=== PATIENT | male | born 1965 | race Caucasian/White ===

== ENCOUNTER → 2016-11-26 | Outpatient (CLI) | payer OTHER ==
[2016-11-26 10:07] LABS: Appearance,Urine Clear (Clear); Bilirubin,Urine Negative (Negative); Glucose,Urine (UA) Negative (Negative); Ketones,Urine Negative (Negative); Leukocyte Esterase,Urine Trace (Negative); Mucus,Urine Rare /hpf; Nitrite,Urine Negative (Negative); Particle Count 1520; Protein,Urine Negative (Negative); RBC,Urine 4 /hpf (0-5); Specific Gravity,Urine 1.013 (1.001-1.035); Squamous Epithelial Cell,Urine <1 /hpf (0-4); UA Billing (MACRO vs. MICRO) MICRO; Urobilinogen,Urine <2.0 mg/dL (<2.0); WBC,Urine 5 /hpf (0-5)
[2016-11-26 10:11] LABS: Basophils % (A) 1 %; CH 30.2; CHCM 33.9; Eosinophils # (A) 0.1 k/uL (0-0.7); Eosinophils % (A) 1 %; HCT 49.9 % (39.0-53.0); HDW 2.36; HGB 16.3 gm/dL (13.0-17.5); Luc # (Auto) 0.18; Luc % (Auto) 2; Lymphocytes # (A) 2.3 k/uL (1.0-4.8); Lymphocytes % (A) 30 %; MCH 29.3 pg (25.0-35.0); MCHC 32.7 g/dL (31.0-37.0); MCV 89.6 fL (80.0-100.0); Mean Platelet Volume 6.6; Monocytes # (A) 0.4 k/uL (0-1.0); Monocytes % (A) 5 %; Neutrophils # (A) 4.7 k/uL (1.3-7.7); Neutrophils % (A) 61 %; RBC 5.57 m/uL (4.30-5.90); WBC 7.7 k/uL (3.8-10.6); WBC (Perox) 7.74
[2016-11-26 10:19] LABS: Anion Gap 9 mmol/L; Blood Urea Nitrogen 16 mg/dL (9-20); Carbon Dioxide 27 mmol/L (22-30); Chloride 104 mmol/L (98-107); Non-African American GFR(MDRD) >60 (>60 ml/min/1.73 sqM); Sodium 140 mmol/L (137-145)
== END | disposition home or self-care (01) ==
LOC: LABWHC1 09:18
PROVIDERS: ATTEND Urology
DX: Z01.812 Encounter for preprocedural laboratory examination (principal); N20.1 Calculus of ureter
CPT/HCPCS: 36415; 80051; 81001; 82565; 84520; 85025

== ENCOUNTER 2016-12-02 11:09 | Day surgery (SDC) | payer OTHER ==
[2016-11-29 09:04] VITALS: BMI 36.1
[~2016-12-02 11:09] MED LIST: LIDOCAINE 1% 20 ML VIAL (10MG/ML) FOR IV START INTRADERMA PRN; Pre Op ABX Message 1 EACH MISC MISCELLANE ONE
[2016-12-02 11:25] VITALS: TEMP 97.6
[2016-12-02] MEDS: LACTATED RINGERS 1,000 ML IV ONE ×2 (11:33→11:54)
[2016-12-02] MEDS ORDERED: LIDOCAINE 1% 20 ML VIAL (10MG/ML) FOR IV START INTRADERMA ONE (11:33)
[2016-12-02] MEDS ORDERED: fentaNYL (PF) 50 MCG/ML 2 ML AMP ONE (11:54)
[2016-12-02] MEDS ORDERED: MIDAZOLAM 2 MG/2 ML VIAL ONE (11:54)
[2016-12-02] MEDS ORDERED: FUROSEMIDE 10 MG/ML 2 ML VIAL ONE (11:54)
[2016-12-02] MEDS ORDERED: PROPOFOL 10 MG/ML 20 ML VIAL IV ONE (11:54)
[2016-12-02] MEDS ORDERED: LIDOCAINE 1% INJ 10MG/ML (20 ML MDV) ONE (11:54)
--- NOTE | 2016-12-02 12:19 | XR ---
EXAMINATION TYPE: XR KUB DATE OF EXAM: 12/02/2016 11:03 AM COMPARISON: NONE INDICATION: Kidney stones TECHNIQUE: Single view abdomen FINDINGS: There is a normal bowel gas pattern. Psoas margins are normal. No organomegaly is present. No abnormal calcifications are identified. There may be some faint density in the superior pole left kidney measuring 2 mm not well visualized on the second image. Previous suspected left ureteral stone measuring 1.4 cm craniocaudal dimension may remain present. Some adjacent calcification may be prese nt. This is overlying the small bowel loop. This is at the level of the left L3 transverse process IMPRESSION: 1. Possible mid left ureteral stone measures slightly larger than the previous measurement at the lev el of the superior L4 vertebral level in October 2016.
--- NOTE | 2016-12-02 12:40 | P.OP ---
Date of Procedure: 12/02/16 Preoperative Diagnosis: Left Ureteral Calculus Postoperative Diagnosis: Same Procedure(s) Performed: Left Extracorporeal Shockwave Lithotripsy (ESWL) Anesthesia: MAC Surgeon: Ac Rosado Estimated Blood Loss (ml): 0 IV fluids (ml): 800 Pathology: none sent Condition: stable Disposition: PACU Indications for Procedure: The patient came acutely for evaluation of a 7x10 mm proximal left ureteral stone. He also has small bilateral renal stones. His urine is clear. He feels well now but has been taking prn norco. He now comes for ESWL. Operative Findings: No obvious fragmentation Description of Procedure: The patient was taken to the operating room and placed on the Dornier Compact Delta II lithotripter in the supine position. The calculus was seen on biplanar fluoroscopy. Lasix 10 mg was given intravenously. Once the patient was properly positioned and sedated, lithotripsy was performed. The energy level was gradually increased per protocol, to an energy level of 4. After 200 shocks were administered, a 2 minute pause was instituted per protocol. A total of 2500 shocks were given at a rate of 80 shocks per minute. Fluoroscopy was utilized at a minimum to ensure proper positioning and determine the treatment status. The appearance of the calculus failed to change, suggesting fragmentation had not occurred. The patient tolerated the procedure well was taken to the recovery room in stable condition. Instructions were given to strain the urine, and the patient will follow-up within one week.
[2016-12-02 13:43] VITALS: BP 154/93; PULSE 69; RESP 18
== END 2016-12-02 13:44 | disposition home or self-care (01) ==
LOC: ORWHC2ENDO 11:09
PROVIDERS: ATTEND Urology
DX: N20.2 Calculus of kidney with calculus of ureter (principal); Z79.891 Long term (current) use of opiate analgesic; Z79.899 Other long term (current) drug therapy
CPT/HCPCS: 74000; 50590; J2250; J1940; J2001; J3010; J2704; 99153

== ENCOUNTER → 2016-12-06 | Outpatient (CLI) | payer OTHER ==
--- NOTE | 2016-12-06 09:40 | XR ---
EXAMINATION TYPE: XR abdomen 1V DATE OF EXAM: 12/06/2016 9:34 AM HISTORY: Pain Comparison: 12/02/2016 Single KUB is submitted for interpretation. Findings: Right renal calculi: None Visualized. Right ureteral calculi: None Visualized. Left renal calculi: Multiple small left-sided renal calculi are seen measuring up to 3 mm. Left ureteral calculi: 6 mm calculus left mid ureter is essentially unchanged and overlies the L3 le ft transverse process. Pelvic calcifications: None Visualized. Bowel gas pattern is unremarkable. No free air. No mass effects. IMPRESSION: 1. No significant change appreciated.
== END | disposition home or self-care (01) ==
LOC: RADXRMAIN 09:19
PROVIDERS: ATTEND Urology
DX: N20.1 Calculus of ureter (principal)
CPT/HCPCS: 74000

== ENCOUNTER → 2016-12-31 | Outpatient (CLI) | payer OTHER ==
--- NOTE | 2016-12-31 14:47 | XR ---
EXAMINATION TYPE: XR KUB DATE OF EXAM: 12/31/2016 1:49 PM CLINICAL HISTORY: Lithotripsy 3 weeks ago progress study. TECHNIQUE: 2 supine KUB images of the abdomen are obtained. COMPARISON: Abdominal x-ray December 06, 2016. CT abdomen and pelvis November 04, 2016. FINDINGS: There is redemonstration of 2 small fragmented or irregular calculi lower pole level left k idney and single calculus upper pole level right kidney measuring 5 mm or smaller in size. There is s table 7 mm calculus in the proximal to mid left ureter at inferior L3 vertebral body level. No signif icant change in size or position is noted. Small right-sided renal calculi a CT are less well seen on plain films. There is overall nonobstructive bowel gas pattern. Visualized osseous structures are intact. IMPRESSION: The 7 mm calculus proximal to mid left ureter remains unchanged in size and position.
[2016-12-31 15:40] LABS: Appearance,Urine Clear (Clear); Bilirubin,Urine Negative (Negative); Glucose,Urine (UA) Negative (Negative); Ketones,Urine Negative (Negative); Leukocyte Esterase,Urine Negative (Negative); Nitrite,Urine Negative (Negative); PH, Urine 6.5 (5.0-8.0); Protein,Urine Negative (Negative); Specific Gravity,Urine 1.014 (1.001-1.035); UA Billing (MACRO vs. MICRO) CHEM; Urobilinogen,Urine <2.0 mg/dL (<2.0)
[2016-12-31 15:53] LABS: Basophils # (A) 0.1 k/uL (0-0.2); Basophils % (A) 1 %; CH 30.2; CHCM 34.3; Eosinophils # (A) 0.1 k/uL (0-0.7); Eosinophils % (A) 1 %; HCT 48.4 % (39.0-53.0); HGB 16.3 gm/dL (13.0-17.5); Luc # (Auto) 0.23; Luc % (Auto) 2; Lymphocytes # (A) 2.9 k/uL (1.0-4.8); Lymphocytes % (A) 27 %; MCH 29.8 pg (25.0-35.0); MCHC 33.7 g/dL (31.0-37.0); MCV 88.4 fL (80.0-100.0); Mean Platelet Volume 6.9; Monocytes # (A) 0.6 k/uL (0-1.0); Monocytes % (A) 6 %; Neutrophils # (A) 6.6 k/uL (1.3-7.7); Neutrophils % (A) 63 %; RBC 5.47 m/uL (4.30-5.90); RDW 12.6 % (11.5-15.5); WBC 10.5 k/uL (3.8-10.6); WBC (Perox) 10.69
[2016-12-31 16:02] LABS: Anion Gap 10 mmol/L; Blood Urea Nitrogen 16 mg/dL (9-20); Calcium 9.5 mg/dL (8.4-10.2); Carbon Dioxide 27 mmol/L (22-30); Chloride 103 mmol/L (98-107); Glucose 94 mg/dL (74-99); Non-African American GFR(MDRD) >60 (>60 ml/min/1.73 sqM); Potassium 5.2 mmol/L (3.5-5.1); Sodium 140 mmol/L (137-145)
== END | disposition home or self-care (01) ==
LOC: RADXRMAIN 13:19
PROVIDERS: ATTEND Urology
DX: Z01.818 Encounter for other preprocedural examination (principal); N20.0 Calculus of kidney; N20.1 Calculus of ureter; Z01.812 Encounter for preprocedural laboratory examination
CPT/HCPCS: 36415; 74000; 80048; 81003; 85025

== ENCOUNTER 2017-01-06 08:52 | Day surgery (SDC) | payer OTHER ==
[2017-01-02 11:41] VITALS: BMI 36.5
[~2017-01-06 08:52] MED LIST changes: +LACTATED RINGERS 1,000 ML IV SCH; -LIDOCAINE 1% 20 ML VIAL (10MG/ML) FOR IV START INTRADERMA PRN; -Pre Op ABX Message 1 EACH MISC MISCELLANE ONE
--- NOTE | 2017-01-06 09:03 | XR ---
EXAMINATION TYPE: XR KUB DATE OF EXAM: 01/06/2017 8:46 AM CLINICAL DATA: 51-year-old male preoperative left-sided lithotripsy for kidney stone, [facility] COMPARISON: 12/31/2016 FINDINGS: Nonobstructive bowel gas pattern. Mild scattered stool burden. Approximately 2 calcific density seen in the left mid abdomen measuring up to 4 mm. There is an additional 9 mm calcific density projecting in the left paramedian abdomen at the L3 level. This is relatively similar in position as compared t o prior exam. IMPRESSION: 1. 9 mm upper to mid left ureteral calculus, not significantly changed from 12/31/2016. 2. Additional nonobstructive left-sided nephrolithiasis measuring up to 4 mm.
[2017-01-06 10:07] VITALS: TEMP 97.7
[2017-01-06] MEDS ORDERED: PROPOFOL 10 MG/ML 20 ML VIAL IV ONE (10:41)
[2017-01-06] MEDS ORDERED: LIDOCAINE 1% INJ 10MG/ML (20 ML MDV) ONE (10:41)
[2017-01-06] MEDS ORDERED: fentaNYL (PF) 50 MCG/ML 2 ML AMP ONE (10:41)
[2017-01-06] MEDS ORDERED: MIDAZOLAM 2 MG/2 ML VIAL ONE (10:41)
[2017-01-06 11:34] VITALS: RESP 18
[2017-01-06 11:56] VITALS: BP 154/97; PULSE 75
[2017-01-06] MEDS ORDERED: IV FLUID CONTINUATION 1,000 ML IV ONE (12:03)
--- NOTE | 2017-01-07 07:03 | OP ---
DATE OF SERVICE: 01/06/2017 SURGEON: CARLEE WILKS MD PREOPERATIVE DIAGNOSIS: Proximal left ureteral calculus. POSTOPERATIVE DIAGNOSIS: Proximal left ureteral calculus. OPERATION: Extracorporeal shockwave lithotripsy of left ureteral calculus. ANESTHESIA: Intravenous sedation. Patient is a 51-year-old male with a history of urolithiasis who underwent ESWL treatment of a left renal calculus in 11/2016. Patient has a 5 x 9 mm calculus in the proximal left ureter, which has resulted from that procedure. Treatment options were reviewed with Dr. Porter and the patient has elected to proceed with ESWL. DESCRIPTION OF PROCEDURE: Patient was taken to the operating suite where adequate intravenous sedation was given. Patient was placed in the supine position on the fluoroscopy table. His proximal left ureteral calculus was localized using biplanar fluoroscopy. Lithotripsy was performed using the Dornier compact delta unit. Patient received 2500 shocks at level 5. A 2 minute pause occurred after 200 shocks. There appeared to be fragmentation of the calculus. Anesthesia was reversed and patient was returned to the recovery room, awake and in satisfactory condition. He will be seen back by Dr. Porter in one week at which time a KUB will be obtained. BERNABE
== END 2017-01-06 12:35 | disposition home or self-care (01) ==
LOC: ORWHC2ENDO 08:52
PROVIDERS: ATTEND Urology
DX: N20.1 Calculus of ureter (principal); Z79.891 Long term (current) use of opiate analgesic; Z79.1 Long term (current) use of non-steroidal anti-inflammatories (NSAID); Z79.899 Other long term (current) drug therapy; Z87.891 Personal history of nicotine dependence
CPT/HCPCS: 50590; 74000; J2250; J2001; J3010; J2704; 99153

== ENCOUNTER → 2017-01-14 | Outpatient (CLI) | payer OTHER ==
--- NOTE | 2017-01-14 10:17 | XR ---
Abdomen HISTORY: Ureteral calculus Correlation to prior abdomen December Frontal view of the abdomen on 2 images There may been fragmentation of the lower pole calculus in the left kidney, multiple fragments are wood spected. Upper pole calcification is thought to be present on the left and not well seen due to super imposed bowel gas. Superimposed bowel gas obscures the right kidney. Probable vascular calcifications within the pelvis. There is a 5 mm calcification in the left hemipelvis which may represent interval migration of patient's ureteral calculus. IMPRESSION: Interval migration status post lithotripsy is suspected of patient's left ureteral calcul us
== END | disposition home or self-care (01) ==
LOC: RADXRMAIN 09:36
PROVIDERS: ATTEND Urology
DX: N20.1 Calculus of ureter (principal); Z98.890 Other specified postprocedural states
CPT/HCPCS: 74000